=== PATIENT | male | born 2000 | race African-American/Black ===

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

== ENCOUNTER 2021-11-22 16:59 | Emergency (ER) | payer OTHER | END 2021-11-22 18:47 | disposition left against medical advice (07) | LOC: ERS 16:59 | DX: Z53.21 Procedure and treatment not carried out due to patient leaving prior to being seen by health care provider (principal) ==